=== PATIENT | female | born 1940 | race Caucasian/White ===

== ENCOUNTER → 2016-11-14 | Outpatient (CLI) | payer MEDICARE, OTHER ==
[~2016-11-14] MED LIST: ALPR-412 PO; CALC500T83 PO; CHOL100010 PO; DYZ PO; FAMO20TA11 PO; LEVO100T PO; SUMA50TA15 PO; WARF2TAB PO
[2016-11-14 18:16] LABS: BLOOD UREA NITROGEN 10 mg/dl (7-18); BUN/CREATININE RATIO 22.1 (10-20); CARBON DIOXIDE 28 mmol/L (21-32); CHLORIDE 94 mmol/L (98-107); CREATININE 0.47 mg/dl (0.60-1.20); GLUCOSE 85 mg/dl (70-99); POTASSIUM 3.5 mmol/L (3.5-5.1); SODIUM 130 mmol/L (136-145)
== END | disposition home or self-care (01) ==
LOC: C.LAB1850 16:13
PROVIDERS: ATTEND Internal Medicine
DX: I10 Essential (primary) hypertension (principal)

== ENCOUNTER → 2016-11-19 | Outpatient (CLI) | payer MEDICARE ==
[~2016-11-19] MED LIST changes: +CALCTAB7 PO; +CHOL100027 PO; +DPRSCR15 TOP; +FERR1TAB23 PO; +LSN20 PO; +MXZC25 PO; +SPIR1TAB72 PO
--- NOTE | 2016-11-19 09:36 | DIAGNOSTIC IMAGING REPORT ---
(RENAL)RETROPERITONEA COMP HISTORY: Hypertension I10 Hypertension COMPARISON: None. FINDINGS: Right kidney: 1.1 cm maximum linear dimension no evidence for hydronephrosis Normal corticomedullary differentiation and cortical thickness. Left kidney: Maximum dimension 9.9 cm. No evidence for hydronephrosis Normal corticomedullary differentiation and cortical thickness. Bladder: No bladder wall thickening. The bilateral ureteral jets were identified. IMPRESSION: Normal renal ultrasound. The above report was generated using voice recognition software. It may contain grammatical, syntax or spelling errors. Electronically signed by: Loki Tracy M.D. 11/19/2016 9:34 AM Dictated Date/Time: 11/19/2016 9:30 AM
--- NOTE | 2016-11-19 09:51 | DIAGNOSTIC IMAGING REPORT ---
DUPLEX RENAL ARTERY CLINICAL HISTORY: I10 Hypertension hypertension TECHNIQUE: Doppler COMPARISON STUDY: None FINDINGS: Velocity characteristics bilaterally are unremarkable. Impedance characteristics are unremarkable. IMPRESSION: No evidence for significant stenotic process The above report was generated using voice recognition software. It may contain grammatical, syntax or spelling errors. Electronically signed by: Loki Tracy M.D. 11/19/2016 9:50 AM Dictated Date/Time: 11/19/2016 9:48 AM
== END | disposition home or self-care (01) ==
LOC: C.ULTR 08:09
PROVIDERS: ATTEND Internal Medicine
DX: I10 Essential (primary) hypertension (principal)

== ENCOUNTER 2016-11-28 20:56 | Inpatient (IN) | payer MEDICARE, OTHER ==
[~2016-11-28] VITALS: Ht 167.6 cm; Wt 53.1 kg
[~2016-11-28 20:56] MED LIST changes: -CALCTAB7 PO; -CHOL100027 PO; -DPRSCR15 TOP; -FERR1TAB23 PO; -LSN20 PO; -MXZC25 PO; -SPIR1TAB72 PO
[2016-11-28] MEDS ORDERED: HydrALAZINE HCL 20 MG/ML VIAL IV. STA (21:49)
[2016-11-28] MEDS ORDERED: SPIR1TAB72 PO (22:40)
[2016-11-28] MEDS ORDERED: CALCTAB7 PO (22:40)
[2016-11-28] MEDS ORDERED: CHOL100027 PO (22:40)
[2016-11-28] MEDS ORDERED: DPRSCR15 TOP (22:42)
--- NOTE | 2016-11-28 22:49 | DIAGNOSTIC IMAGING REPORT ---
CHEST ONE VIEW PORTABLE HISTORY: 76 years-old Female CHEST PAIN COMPARISON: 01/27/2015 TECHNIQUE: Portable upright AP view of the chest FINDINGS: Cardiac silhouette is upper limits of normal. There is atherosclerosis of the aorta. There is no pneumothorax, pleural effusion or focal airspace consolidation identified. Nodular density of the right lung base suggest nipple shadow. No overt pulmonary edema. Lungs are again hyperinflated. Right shoulder rotator cuff calcific tendinosis is present. Upper abdominal structures are within normal limits. IMPRESSION: Hyperinflation without acute cardiopulmonary process. Nodular density of the right lung base suggest nipple shadow. The above report was generated using voice recognition software. It may contain grammatical, syntax or spelling errors. Electronically signed by: Paco Joshi M.D. 11/28/2016 10:47 PM Dictated Date/Time: 11/28/2016 10:45 PM
[2016-11-28 22:52] LABS: BASO % 1.1 %; BASO ABS # 0.05 K/uL (0-0.2); COMPLETE YES; EOS % 5.2 %; IG% 0.2 %; LYMPH % 26.3 %; LYMPH ABS # 1.22 K/uL (1.2-3.4); MEAN CELL VOLUME 96.5 fL (80-100); MEAN CORPUSCULAR HEMOGLOBIN 33.6 pg (25-34); MEAN CORPUSCULAR HGB CONC 34.8 g/dl (32-36); MEAN PLATELET VOLUME 8.7 fL (7.4-10.4); MONO % 12.7 %; NEUT % 54.5 %; PLATELET COUNT 247 K/uL (130-400); RED BLOOD COUNT 4.56 M/uL (4.2-5.4); WHITE BLOOD COUNT 4.64 K/uL (4.8-10.8)
[2016-11-28] MEDS ORDERED: FERR1TAB23 PO (22:55)
[2016-11-28 23:10] LABS: CALCIUM 9.8 mg/dl (8.5-10.1); CREATININE 0.54 mg/dl (0.60-1.20); POTASSIUM 3.5 mmol/L (3.5-5.1)
[2016-11-28] MEDS ORDERED: ACETAMINOPHEN 500 MG TAB PO STA (23:17)
[2016-11-28] MEDS ORDERED: LORAZEPAM 2 MG/ML 1 ML VIAL IV STA (23:31)
[2016-11-29] VITALS (11 sets, daily range): BP systolic 135–193; BP diastolic 81–116; PULSE 58–92; TEMP 36.5–36.7; O2SAT 95–96; Ht 167.6 cm; Wt 53.1 kg
--- NOTE | 2016-11-29 00:52 | EMERGENCY ROOM VISIT NOTE ---
History Report prepared by Sowmya: aLlo Mckay Under the Supervision of: Dr. Jefferson Jim D.O. First contact with patient: 21:42 Chief Complaint: HYPERTENSION Stated Complaint: SEVERE NECK HEAD PAIN,LIGHTHEADED,ELEVATED BP History of Present Illness The patient is a 76 year old female who presents to the Emergency Room with complaints of persistent hypertension beginning two days ago. She was diagnosed with hypertension six months ago. She is on Losartan for her blood pressure. The patient states that she was started on an additional medication two days ago for her break through hypertension. She states that her blood pressure has been elevated recently despite the additional medication. She states that her blood pressure was found to be 200/130 a few hours ago. The patient also complains of headache, neck pain, lightheadedness, and "fogginess". She denies any fevers, or LOC. She notes she has been under a little increased stress recently due to having company at her house. Source of History: patient Onset: Two days ago Symptom Intensity: 200/130 Quality: other (hypertension) Timing: other (persistent) Associated Symptoms: + headache, + neck pain, No LOC, No fevers Note: The patient also complains of "fogginess" and lightheadedness. Review of Systems See HPI for pertinent positives and negatives. A total of ten systems were reviewed and were otherwise negative. Past Medical & Surgical Medical Problems: (1) Cataract Nos (2) Cerebral Cysts (3) Cervical Spondylosis (4) Diverticulosis Colon (W/O Ment Of Hemorrhage) (5) DJD (degenerative joint disease) of hip (6) Irritable Bowel Syndrome (7) Sciatica Surgical Problems: (1) History of tonsillectomy and adenoidectomy (2) Tubal ligation status Family History No pertinent family history stated. Social History Smoking Status: Never Smoker Alcohol Use: none Drug Use: none Marital Status: Housing Status: unknown Occupation Status: retired Current/Historical Medications Scheduled Betamethasone Dip (Betamethasone Dipropionat), 1 APPLN TOP BID Calcium Carbonate-Vitamin D W/ (Caltrate 600 Plus), 1 TAB PO DAILY Cholecalciferol (Vitamin D 1000 Unit), 2,000 INTER.UNIT PO DAILY Ferrous Sulfate (Iron), 1 MG PO DAILY Hctz/Spironolactone (Spironolactone/Hydrochlor 25-25 mg), 1 TAB PO BID Levothyroxine Sodium (Synthroid), 100 MCG PO QAM Sumatriptan Succinate (Imitrex), 50 MG PO PRN Scheduled PRN Alprazolam (Alprazolam), 0.5-1 TAB PO HS PRN for PRN Famotidine (Pepcid), 20 MG PO QAM PRN for PRN Allergies Coded Allergies: Amoxicillin (Verified Allergy, Unknown, HIVES, 02/22/15) Sulfamethoxazole w/Trimethoprim (Verified Allergy, Unknown, HIVES, ) Codeine (Unverified Adverse Reaction, Unknown, NAUSEA AND VOMITING, ) Gluten (Unverified Adverse Reaction, Unknown, INTOLERANCE TO WHEAT-GI ISSUES/IBS, 02/22/15) Physical Exam Vital Signs Date Time Temp Pulse Resp B/P (MAP) Pulse Ox O2 Delivery O2 Flow Rate FiO2 11/29/16 00:01 150/80 11/28/16 23:56 91 25 96 11/28/16 23:46 157/88 11/28/16 23:31 184/92 11/28/16 23:26 111 23 186/105 98 11/28/16 23:13 99 20 168/100 98 Room Air 11/28/16 23:10 168/100 11/28/16 23:10 101 20 168/100 98 Room Air 11/28/16 22:31 176/115 11/28/16 22:26 73 28 98 11/28/16 22:11 75 11/28/16 22:10 75 16 201/127 98 Room Air 11/28/16 22:07 201/127 11/28/16 22:04 98 Room Air 11/28/16 21:14 36.6 76 18 204/117 93 Room Air Physical Exam GENERAL: Awake, alert, well-appearing, in no distress HENT: Normocephalic, atraumatic. Oropharynx unremarkable. EYES: Normal conjunctiva. Sclera non-icteric. NECK: Supple. No nuchal rigidity. FROM. No JVD. RESPIRATORY: Clear to auscultation. CARDIAC: Regular rate, normal rhythm. Extremities warm and well perfused. Pulses equal. ABDOMEN: Soft, non-distended. No tenderness to palpation. No rebound or guarding. No masses. RECTAL: Deferred. MUSCULOSKELETAL: Chest examination reveals no tenderness. The back is symmetrical on inspection without obvious abnormality. There is no CVA tenderness to palpation. No joint edema. LOWER EXTREMITIES: Calves are equal size bilaterally and non-tender. No edema. No discoloration. NEURO: Normal sensorium. No sensory or motor deficits noted. SKIN: No rash or jaundice noted. Medical Decision & Procedures ER Provider Diagnostic Interpretation: X-ray: Per my interpretation, radiologist review. CHEST ONE VIEW PORTABLE FINDINGS: Cardiac silhouette is upper limits of normal. There is atherosclerosis of the aorta. There is no pneumothorax, pleural effusion or focal airspace consolidation identified. Nodular density of the right lung base suggest nipple shadow. No overt pulmonary edema. Lungs are again hyperinflated. Right shoulder rotator cuff calcific tendinosis is present. Upper abdominal structures are within normal limits. IMPRESSION: Hyperinflation without acute cardiopulmonary process. Nodular density of the right lung base suggest nipple shadow. The above report was generated using voice recognition software. It may contain grammatical, syntax or spelling errors. Electronically signed by: Paco Joshi M.D. CT results per [facility]rad and my review. CT HEAD: MRI 08/18/2008. No acute intracranial hemorrhage. No evidence of acute infarct, extra-axial fluid collection, or hydrocephalus. White matter hyperdensities, which are nonspecific but are most likely related to chronic small vessel ischemic changes. Global cerebral volume loss. Visualized paranasal sinuses and mastoid air cells are clear. Laboratory Results 11/28/16 22:15 Red Blood Count 4.56, Mean Corpuscular Volume 96.5, Mean Corpuscular Hemoglobin 33.6, Mean Corpuscular Hemoglobin Concent 34.8, Mean Platelet Volume 8.7, Neutrophils (%) (Auto) 54.5, Lymphocytes (%) (Auto) 26.3, Monocytes (%) (Auto) 12.7, Eosinophils (%) (Auto) 5.2, Basophils (%) (Auto) 1.1, Neutrophils # (Auto ) 2.53, Lymphocytes # (Auto) 1.22, Monocytes # (Auto) 0.59, Eosinophils # (Auto ) 0.24, Basophils # (Auto) 0.05 11/28/16 22:15 Test 11/28/16 22:15 White Blood Count 4.64 K/uL (4.8-10.8) Red Blood Count 4.56 M/uL (4.2-5.4) Hemoglobin 15.3 g/dL (12.0-16.0) Hematocrit 44.0 % (37-47) Mean Corpuscular Volume 96.5 fL (80-100) Mean Corpuscular Hemoglobin 33.6 pg (25-34) Mean Corpuscular Hemoglobin Concent 34.8 g/dl (32-36) Platelet Count 247 K/uL (130-400) Mean Platelet Volume 8.7 fL (7.4-10.4) Neutrophils (%) (Auto) 54.5 % Lymphocytes (%) (Auto) 26.3 % Monocytes (%) (Auto) 12.7 % Eosinophils (%) (Auto) 5.2 % Basophils (%) (Auto) 1.1 % Neutrophils # (Auto) 2.53 K/uL (1.4-6.5) Lymphocytes # (Auto) 1.22 K/uL (1.2-3.4) Monocytes # (Auto) 0.59 K/uL (0.11-0.59) Eosinophils # (Auto) 0.24 K/uL (0-0.5) Basophils # (Auto) 0.05 K/uL (0-0.2) RDW Standard Deviation 46.2 fL (36.4-46.3) RDW Coefficient of Variation 13.2 % (11.5-14.5) Immature Granulocyte % (Auto) 0.2 % Immature Granulocyte # (Auto) 0.01 K/uL (0.00-0.02) Anion Gap 9.0 mmol/L (3-11) Est Creatinine Clear Calc Drug Dose 74.4 ml/min Estimated GFR () 104.8 Estimated GFR (Non- 90.4 BUN/Creatinine Ratio 20.0 (10-20) Calcium Level 9.8 mg/dl (8.5-10.1) Total Bilirubin 0.6 mg/dl (0.2-1) Direct Bilirubin 0.2 mg/dl (0-0.2) Aspartate Amino Transf (AST/SGOT) 25 U/L (15-37) Alanine Aminotransferase (ALT/SGPT) 23 U/L (12-78) Alkaline Phosphatase 84 U/L (45-117) Total Protein 8.0 gm/dl (6.4-8.2) Albumin 4.5 gm/dl (3.4-5.0) Laboratory results reviewed by me Medications Administered Medications (Trade) Dose Ordered Sig/Jackie Route Start Time Stop Time Status Last Admin Dose Admin Hydralazine HCl (HydrALAZINE INJ) 10 mg NOW STAT IV. 11/28/16 21:49 11/28/16 21:51 DC 11/28/16 22:29 10 MG Acetaminophen (Tylenol Tab) 1,000 mg NOW STAT PO 11/28/16 23:17 11/28/16 23:18 DC 11/28/16 23:37 1,000 MG Lorazepam (Ativan Inj) 1 mg NOW STAT IV 11/28/16 23:31 11/28/16 23:32 DC 11/28/16 23:37 1 MG ECG Indication: other (lightheadedness) Rate (beats per minute): 69 Rhythm: sinus rhythm Findings: 1st degree AV block, no acute ischemic change, other (LVH) Change: Repeat ECG reveals a sinus tachycardia with a rate of 107 bpm. Non-specific ST and T wave change. Normal axis. Normal intervals. ED Course 2142: The patient was evaluated in room B8. A complete history and physical exam was performed. 9: Ordered Hydralazine Inj 10 mg IV. 7: Ordered Tylenol Tab 1000 mg PO. 2331: Ordered Ativan Inj 1 mg IV. 0045: Upon reexamination, the patient was resting comfortably. I discussed the test results and treatment plan with her. She would like to stay in the hospital. The patient will be evaluated for further management. Medical Decision Differential diagnosis: Etiologies such as benign hypertension, hypertensive emergency, cardiovascular pathology, pheochromocytoma, electrolyte abnormality, renal disease, endorgan damage, as well as others were entertained. Patient is in no distress her pressure did decrease after hydralazine and Ativan. Patient did have some symptoms of hypertensive urgency with dizziness. There is no obvious CVA on CT. On repeat examination 1 3 AM the patient is nonfocal neurologically. The patient is afraid to go home. The case is discussed with the hospitalist for admission Consults Time Called: 44 Consulting Physician: Dr. Peña -[facility] [place] Returned Call: [phone] Discussed the patient's case. The patient will be evaluated for further treatment and disposition. Impression Primary Impression: HTN (hypertension) Additional Impression: Dizziness Scribe Attestation The scribe's documentation has been prepared under my direction and personally reviewed by me in its entirety. I confirm that the note above accurately reflects all work, treatment, procedures, and medical decision making performed by me. Departure Information Dispostion Being Evaluated By Hospitalist Referrals David Quinones M.D. (PCP) Patient Instructions My [facility] Problem Qualifiers
[2016-11-29] MEDS ORDERED: ACETAMINOPHEN 325 MG TAB PO PRN (02:00)
[2016-11-29] MEDS ORDERED: LORAZEPAM 2 MG/ML 1 ML VIAL IV STA (02:12)
[2016-11-29] MEDS ORDERED: NSS + 20MEQ KCL 1000ML 1,000 ML IV SCH (03:39)
[2016-11-29] MEDS: ALPRAZOLAM 0.25 MG TAB PO PRN ×2 (04:05→20:02)
[2016-11-29] MEDS: SUMATRIPTAN SUCCINATE 50 MG TAB PO PRN (04:12)
--- NOTE | 2016-11-29 05:39 | History and Physical ---
History & Physical Date & Time of Service: Nov 29, 2016 at 05:29 Chief Complaint: Dizziness, Hypertensive Urgency Primary Care Physician: David Quinones M.D. History of Present Illness Source: patient, spouse The patient is a 76-year-old female who presents emergency department with symptoms of generalized fatigue and worsening of her blood pressure over the past 2 days. She was initially diagnosed with hypertension 6 months ago and was started on losartan and then had the addition of Aldactazide 2 days ago for breakthrough hypertension. When she checked her blood pressure. Hours prior to arrival, it increased to 200/1:30 in spite of the 2 medications. With the development of a headache, neck pain, lightheadedness and brain fogginess, she decided to come to emergency department for assessment. She has not had any change in dietary intake or general activity level, but does report some mild increased stress recently due to having company at her house. She does not have much salt in her diet, and is not take any [id number] herbal supplements. Past Medical/Surgical History Medical Problems: (1) Cataract Nos Status: Chronic (2) Cerebral Cysts Status: Chronic (3) Cervical Spondylosis Status: Chronic (4) Diverticulosis Colon (W/O Ment Of Hemorrhage) Status: Chronic (5) DJD (degenerative joint disease) of hip Status: Chronic (6) Irritable Bowel Syndrome Status: Chronic (7) Sciatica Status: Chronic Surgical Problems: (1) History of tonsillectomy and adenoidectomy Status: Resolved (2) Tubal ligation status Status: Resolved Family History Noncontributory Social History Smoking Status: Never Smoker Smokeless Tobacco Use: No Alcohol Use: none Drug Use: none Marital Status: Housing status: lives with significant other Occupational Status: retired Immunizations History of Influenza Vaccine: Yes History of Tetanus Vaccine?: Yes History of Pneumococcal: Yes History of Hepatitis B Vaccine: Yes Multi-Drug Resistant Organisms History of MDRO: No Allergies Coded Allergies: Amoxicillin (Verified Allergy, Unknown, HIVES, 02/22/15) Sulfamethoxazole w/Trimethoprim (Verified Allergy, Unknown, HIVES, ) Codeine (Unverified Adverse Reaction, Unknown, NAUSEA AND VOMITING, ) Gluten (Unverified Adverse Reaction, Unknown, INTOLERANCE TO WHEAT-GI ISSUES/IBS, 10/21/15) Home Medications Scheduled Betamethasone Dip (Betamethasone Dipropionat), 1 APPLN TOP BID Calcium Carbonate-Vitamin D W/ (Caltrate 600 Plus), 1 TAB PO DAILY Cholecalciferol (Vitamin D 1000 Unit), 2,000 INTER.UNIT PO DAILY Ferrous Sulfate (Iron), 1 MG PO DAILY Levothyroxine Sodium (Synthroid), 100 MCG PO QAM Sumatriptan Succinate (Imitrex), 50 MG PO PRN Triamterene/Hctz (Triamterene/Hctz 37.5-25MG Tab), 1 TAB PO DAILY Scheduled PRN Alprazolam (Alprazolam), 0.5-1 TAB PO HS PRN for PRN Famotidine (Pepcid), 20 MG PO QAM PRN for PRN Review of Systems The patient denies chest pain, palpitations, shortness of breath, cough, lower extremity swelling, vision change, hearing change, sore throat, fevers, chills, sweats, weight change, nausea, vomiting, abdominal pain, pelvic pain, blood in urine or stool, dysuria, urinary frequency or urgency, memory loss, rash, abnormal bruising or bleeding, imbalance, focal or generalized weakness, numbness or tingling in arms or legs, arthralgias or myalgias, back or neck pain , night sweats, or allergy symptoms. The review of systems is otherwise negative other than for that already noted above, and at least 10 systems have been reviewed. Physical Exam Vital Signs Date Time Temp Pulse Resp B/P (MAP) Pulse Ox O2 Delivery O2 Flow Rate FiO2 11/29/16 04:00 36.7 87 20 150/94 (112) 95 Room Air 11/29/16 04:00 Room Air 11/29/16 02:10 86 11/29/16 02:01 136/88 11/29/16 01:55 91 17 96 11/29/16 01:31 140/82 11/29/16 01:25 88 15 96 11/29/16 01:20 135/82 11/29/16 01:06 100 20 94 11/29/16 01:01 136/73 11/29/16 00:46 158/91 11/29/16 00:36 83 19 95 11/29/16 00:31 143/83 11/29/16 00:16 132/80 11/29/16 00:06 93 16 96 11/29/16 00:01 150/80 11/28/16 23:56 91 25 96 11/28/16 23:46 157/88 11/28/16 23:31 184/92 11/28/16 23:26 111 23 186/105 98 11/28/16 23:13 99 20 168/100 98 Room Air 11/28/16 23:10 168/100 11/28/16 23:10 101 20 168/100 98 Room Air 11/28/16 22:31 176/115 11/28/16 22:26 73 28 98 11/28/16 22:11 75 11/28/16 22:10 75 16 201/127 98 Room Air 11/28/16 22:07 201/127 11/28/16 22:04 98 Room Air 11/28/16 21:14 36.6 76 18 204/117 93 Room Air The patient is awake, well-developed and adequately nourished, alert and oriented 3, normocephalic and atraumatic, looks fatigued and dehydrated, lying in bed and in no acute distress. HEENT--PERRL, EOMI, mucous membranes and oropharynx dry. Neck--supple, no JVD or bruits, thyroid normal, trachea midline, no adenopathy. Heart--normal S1 and S2, no extra beats, no murmurs, rubs or gallops. Lungs--clear bilaterally with good air movement, no respiratory distress, no accessory muscle use. Abdomen--normal bowel sounds and soft, nontender and nondistended, no hernias or masses, no organomegaly. Extremities--no cyanosis, clubbing or edema. There are good distal pulses b/l. Dermatologic-- normal color, warm and dry, no abnormal lymph nodes, no rash. Neurologic--cranial nerves II through XII grossly intact, motor and sensory examination normal. Rheumatologic--normal range of motion, nontender, muscles and joints. Psychiatric--normal affect. Diagnostics Laboratory Results Results Past 24 Hours Test 11/28/16 22:15 Range/Units White Blood Count 4.64 4.8-10.8 K/uL Red Blood Count 4.56 4.2-5.4 M/uL Hemoglobin 15.3 12.0-16.0 g/dL Hematocrit 44.0 37-47 % Mean Corpuscular Volume 96.5 80-100 fL Mean Corpuscular Hemoglobin 33.6 25-34 pg Mean Corpuscular Hemoglobin Concent 34.8 32-36 g/dl Platelet Count 247 130-400 K/uL Mean Platelet Volume 8.7 7.4-10.4 fL Neutrophils (%) (Auto) 54.5 % Lymphocytes (%) (Auto) 26.3 % Monocytes (%) (Auto) 12.7 % Eosinophils (%) (Auto) 5.2 % Basophils (%) (Auto) 1.1 % Neutrophils # (Auto) 2.53 1.4-6.5 K/uL Lymphocytes # (Auto) 1.22 1.2-3.4 K/uL Monocytes # (Auto) 0.59 0.11-0.59 K/uL Eosinophils # (Auto) 0.24 0-0.5 K/uL Basophils # (Auto) 0.05 0-0.2 K/uL RDW Standard Deviation 46.2 36.4-46.3 fL RDW Coefficient of Variation 13.2 11.5-14.5 % Immature Granulocyte % (Auto) 0.2 % Immature Granulocyte # (Auto) 0.01 0.00-0.02 K/uL Sodium Level 134 136-145 mmol/L Potassium Level 3.5 3.5-5.1 mmol/L Chloride Level 96 98-107 mmol/L Carbon Dioxide Level 29 21-32 mmol/L Anion Gap 9.0 3-11 mmol/L Blood Urea Nitrogen 11 7-18 mg/dl Creatinine 0.54 0.60-1.20 mg/dl Est Creatinine Clear Calc Drug Dose 74.4 ml/min Estimated GFR () 104.8 Estimated GFR (Non- 90.4 BUN/Creatinine Ratio 20.0 10-20 Random Glucose 83 70-99 mg/dl Calcium Level 9.8 8.5-10.1 mg/dl Total Bilirubin 0.6 0.2-1 mg/dl Direct Bilirubin 0.2 0-0.2 mg/dl Aspartate Amino Transf (AST/SGOT) 25 15-37 U/L Alanine Aminotransferase (ALT/SGPT) 23 12-78 U/L Alkaline Phosphatase 84 45-117 U/L Total Protein 8.0 6.4-8.2 gm/dl Albumin 4.5 3.4-5.0 gm/dl Diagnostic Radiology Patient Name: IRENE MAYFIELD I Unit Number: [id number] Dictated: 11/28/162244 Transcribed: 11/28/162244 JRB Printed Date/Time: [~ rep prt dt]/[~ rep prt tm] [~ rep ct labl] - [~ rep ct ivnm] [facility] [place] [place] [address] Dictated: 11/28/162244 Transcribed: 11/28/162244 JRB Printed Date/Time: [~ rep prt dt]/[~ rep prt tm] [~ rep ct labl] - [~ rep ct ivnm] [~ rep ct add3]] CHEST ONE VIEW PORTABLE HISTORY: 76 years-old Female CHEST PAIN COMPARISON: 01/27/2015 TECHNIQUE: Portable upright AP view of the chest FINDINGS: Cardiac silhouette is upper limits of normal. There is atherosclerosis of the aorta. There is no pneumothorax, pleural effusion or focal airspace consolidation identified. Nodular density of the right lung base suggest nipple shadow. No overt pulmonary edema. Lungs are again hyperinflated. Right shoulder rotator cuff calcific tendinosis is present. Upper abdominal structures are within normal limits. IMPRESSION: Hyperinflation without acute cardiopulmonary process. Nodular density of the right lung base suggest nipple shadow. The above report was generated using voice recognition software. It may contain grammatical, syntax or spelling errors. Electronically signed by: Paco Joshi M.D. 11/28/2016 10:47 PM Dictated Date/Time: 11/28/2016 10:45 PM The status of this report is Signed. Draft = Not yet reviewed or approved by Radiologist. Signed = Reviewed and approved by Radiologist. <AttendingPhy></AttendingPhy> <FamilyPhy>David Quinones M.D.</FamilyPhy> < PrimaryPhy>David Quinones M.D.</PrimaryPhy> <UnitNumber>[id number]</UnitNumber > <VisitNumber>[id number]</VisitNumber> <PatientName>IRENE MAYFIELD I</ PatientName> <DateOfBirth>1940</DateOfBirth> <Location>[facility]</Location> < ServiceDate>11/28/16</ServiceDate> <MNE>ESINDI</MNE> <OrderingPhy>Jefferson Jim DO</OrderingPhy> <OrderingPhyMNE>f rep ord dr de jesus</OrderingPhyMNE> < DictatingPhyMNE>f rep dict dr de jesus</DictatingPhyMNE> <CCListMNE>f rep ct hammade</ CCListMNE> <AdmittingPhyMNE>f pt admit dr de jesus</AdmittingPhyMNE> <AttendingPhyMNE >f pt attend dr de jesus</AttendingPhyMNE> <ConsultingPhyMNE>f pt consult dr de jesus</ConsultingPhyMNE> <FamilyPhyMNE>f pt fam dr de jesus</FamilyPhyMNE> <OtherPhyMNE>f pt other dr de jesus</OtherPhyMNE> < PrimaryPhyMNE>f pt prim care dr de jesus</PrimaryPhyMNE> <ReferringPhyMNE>f pt referring dr de jesus</ReferringPhyMNE> EKG EKG shows sinus tachycardia at 107 bpm, LVH with repolarization, no acute ST-T changes Impression Assessment and Plan Hypertensive urgency/fatigue/lightheadedness/neck pain/brain fogginess--The patient will be admitted to telemetry for serial cardiac enzymes, cardiac rhythm monitoring and a 2-D echocardiogram with Dopplers. We will hold Aldactazide 25 mg by mouth twice a day as she appears dehydrated. She did receive hydralazine 10 mg IV in the emergency department with improvement in blood pressure from 204/117-140/84. We'll place on normal saline with KCl 20 mEq ML's per hour. We'll check a urinalysis, renal ultrasound. CT of the head that contrast shows mild chronic small vessel disease. We'll order an MRI the brain to assess for possible CVA and secondary Chencho affect. She is primarily tachycardic at this point, which may be secondary to volume depletion, but for now we'll place on metoprolol tartrate 25 mg by mouth twice a day, until she is rehydrated and the other tests are interpreted. Hypothyroidism--continue levothyroxine sodium at 100 g by mouth every morning. Migraine headache--continue sumatriptan 50 mg by mouth daily when necessary. GERD--place on famotidine 20 mg by mouth twice a day. Anxiety--continue alprazolam 0.5 mg by mouth at bedtime when necessary, and place on lorazepam 1 mg IV 30 minutes prior to MRI. Advanced Directives Existing Advance Directive: No Existing Living Will: Yes Existing Power of Tool Carrier: Yes Resuscitation Status FULL RESUSCITATION VTE Prophylaxis VTE Risk Assessment Done? Y/N: Yes Risk Level: Moderate Given or contraindicated: SCD's Social Service Consult None Apply
[2016-11-29] MEDS: LEVOTHYROXINE 100 MCG TAB PO SCH (06:06)
--- NOTE | 2016-11-29 07:03 | DIAGNOSTIC IMAGING REPORT ---
HEAD WITHOUT CONTRAST (CT) CLINICAL HISTORY: 76 years-old Female presenting with dizzy. TECHNIQUE: Multidetector CT imaging of the head was performed without the use of intravenous contrast. IV contrast: None. A dose lowering technique was used consistent with the principles of ALARA (as low as reasonably achievable). COMPARISON: 12/18/2005. CT DOSE (mGy.cm): The estimated cumulative dose is 1277.12 mGycm. FINDINGS: Chemotherapist topogram: Unremarkable. Ventricles and sulci normal in size. Periventricular white matter hypoattenuation, nonspecific but likely indicative of chronic small vessel ischemic change. This is more prominent on the current exam. Possible old lacunar infarct in the right frontal subcortical white matter. Hypoattenuation in the left basal ganglia may also relate to chronic small vessel ischemia, although focus of acute ischemia cannot be excluded. No mass effect or midline shift. No hemorrhage. No extra-axial fluid collection. Paranasal sinuses and mastoid air cells clear. Calvarium intact. IMPRESSION: 1. Interval increase in chronic small vessel ischemic change. Additionally, left basal ganglia hypoattenuation may also relate to chronic small vessel ischemic change, however, a focus of acute ischemia cannot be excluded. Further evaluation with noncontrast MR brain could be considered as clinically warranted. Electronically signed by: Marco Silver M.D. 11/29/2016 7:02 AM Dictated Date/Time: 11/29/2016 6:57 AM
--- NOTE | 2016-11-29 07:08 | DIAGNOSTIC IMAGING REPORT ---
CAROTID ARTERY ULTRASOUND CLINICAL HISTORY: Hypertensive urgency, dizziness, fatigue. COMPARISON STUDY: Carotid ultrasound January 01, 2006. TECHNIQUE: Real-time, grayscale, and color Doppler sonography of the carotid and vertebral arteries was performed. Images were viewed in the transverse and longitudinal planes. FINDINGS: There is mild atherosclerotic plaque. Velocity measurements are listed below. COMMON CAROTID PEAK SYSTOLIC VELOCITY (CM/S): RIGHT 77 LEFT 53 ICA PEAK SYSTOLIC VELOCITY (CM/S): RIGHT 58 LEFT 73 The systolic ratios between the internal to common carotid arteries were normal. Antegrade flow is seen in the vertebral arteries. The external carotid arteries are patent. Blood pressure in the right arm measured 150/96. Blood pressure in the left arm measured 154/92. IMPRESSION: No evidence of a hemodynamically significant stenosis. Electronically signed by: Steve Adam M.D. 11/29/2016 7:06 AM Dictated Date/Time: 11/29/2016 7:05 AM
[2016-11-29] MEDS: CALCIUM 600MG + VIT D 400 IU TAB PO SCH (08:43)
[2016-11-29] MEDS: CHOLECALCIFEROL 1000 INTER.UNIT TAB PO SCH (08:43)
[2016-11-29] MEDS: FAMOTIDINE 20 MG TAB PO SCH (08:46)
[2016-11-29] MEDS ORDERED: METOPROLOL TARTRATE 25 MG TAB PO SCH (09:00)
--- NOTE | 2016-11-29 11:58 | NEPHROLOGY CONSULTATION ---
DATE OF CONSULTATION: 11/29/2016 RENAL HYPERTENSION CONSULT PROBLEM: Hypertension. SUBJECTIVE: Mrs. Bullock is a 76-year-old woman that I have known for many years. I was her primary care physician prior to her moving to [place] about a year or more ago. She was admitted overnight with significant elevation of her blood pressure and symptoms of generalized fatigue, headache, neck pain, lightheadedness and a sensation of "fogginess." Her medical history is one of what appears to be benign essential hypertension dating back many years. Her hypertension had been evaluated in the past because it was extremely labile. In the past, there was no evidence of renovascular disease and she had no evidence of a pheochromocytoma. Electrolytes and renal function have always been normal and her urinalysis has been normal. For many years, her blood pressure was well controlled with triamterene/hydrochlorothiazide and restricted salt diet. As a matter of fact, she was able to discontinue that drug in about 2010 for several months and her blood pressure remained quite normal. However, with increasing stress in her life, her blood pressure cheri again, but seemed to be well controlled simply with triamterene/hydrochlorothiazide. She remained on that for several years. She had been on spironolactone/hydrochlorothiazide in [place]. However, her primary care cook box filler there noted that her blood pressure was starting to climb and added losartan 25 mg to her regimen. Still that was not effectively controlling her blood pressure. She returned to this area for a visit and scheduled an appointment with me for an opinion with regard to her hypertensive management. That was about 2 weeks ago. Her evaluation was repeat renal ultrasound and renal artery duplex, both of which were completely normal. Her electrolytes were normal, although on a combination of triamterene and losartan, her serum potassium was still 3.5, which is in the low normal range. Her BUN and creatinine were quite normal with her creatinine being in the range of 0.5-0.6 mg/dL. Based on the appearance of low-renin hypertension, it was decided to discontinue her triamterene/hydrochlorothiazide and losartan in favor of spironolactone/hydrochlorothiazide 25/25. Shortly after she started to take the drug, she seemed to feel worse with symptoms of brain fogginess, lightheadedness and headache. Her blood pressure still was not well controlled. She contacted our office and was instructed to reduce the dose to one 25/25 mg tablet per day. She did so, but continued to feel poorly. Therefore, we discontinued her hydrochlorothiazide and left her on spironolactone alone. Nonetheless, her measured blood pressures at home started to rise again as she felt increasingly anxious, continued to have symptoms of headache and fogginess in her head as well as some neck pain. She did not develop any focal neurologic symptoms or problems. Because of that symptomatology, she called the office late yesterday. She spoke with Dr. Adam, who suggested that she be evaluated in the Emergency Room. In the Emergency Room, her blood pressure was extremely high and she was admitted for continued care. She did have a CT scan of her head, which showed changes of probable microvascular disease. Her other associated medical illnesses include a history of irritable bowel syndrome and diverticulosis. She has significant osteoarthritis and has had bilateral hip replacements. That was complicated by a fall after her right hip replacement and an apparent periprosthetic fracture. This well healed. She has a history of low back pain with sciatica. She has a history of hypothyroidism and does take thyroid supplements. She also has a history of Raynaud's disease. She is not on any specific medication for that. The remainder of her past medical history, family history, social history and review of systems appears on her medical admission note by Dr. Peña. There are no additions on my part for that other than the fact that she was seen by dermatology and had several lesions on her anterior chest frozen. That was done recently by Dr. Sara Dyer. Other medications include her thyroid supplement, the use of Imitrex for migraine, vitamin D, alprazolam which she uses on a p.r.n. basis and famotidine, which she uses on a p.r.n. basis for dyspepsia. OBJECTIVE: GENERAL: On physical exam when seen by me, she appeared to be at her baseline. VITAL SIGNS: However, her blood pressure was still elevated at 154/89 with a pulse of 71 and regular. Respiratory rate was 20. Her pulse ox 95% on room air. She is afebrile. SKIN: Shows some apparently cauterized lesions on her anterior chest. Her skin turgor is normal. She has no rash or infiltrative skin disease. There is no cafe au lait spots or neurofibromas. LYMPHATICS: Show no palpable lymphadenopathy. HEAD: Normal. EYES: Grossly normal. The ocular fundi were not examined today, but 1 week ago in my office, they appeared perfectly normal. EARS, NOSE, MOUTH AND THROAT: Unremarkable. Her oral mucous membranes are moist. NECK: Supple. She has no jugular venous distention, carotid bruit or thyromegaly. CHEST: Clear to auscultation. CARDIAC: Shows a regular rhythm. S1 and S2 are normal. I hear no murmur or gallop. ABDOMEN: Firm, but nontender. There is no organomegaly or mass. Bowel sounds are normal. I hear no abdominal bruits. EXTREMITIES: Show no cyanosis, clubbing or peripheral edema. Peripheral pulses are intact. Capillary refill in fingers and toes seem normal. NEUROLOGIC: Shows no lateralizing changes. ASSESSMENT: Mrs. Bullock is a 76-year-old woman with a longstanding history of hypertension, which has been mild to moderate in degree. Her recent evaluation was suggestive of the possibility that she had a low-renin hypertension and for that reason, she was switched to spironolactone/hydrochlorothiazide rather than triamterene/hydrochlorothiazide and losartan. Unfortunately, her blood pressure cheri dramatically. We do know that she had a recent normal renal artery duplex and that her potassium was somewhat low despite being on losartan and triamterene. RECOMMENDATIONS: For now, since she appears to be euvolemic, I would discontinue her IV saline. I would return her to triamterene/hydrochlorothiazide. She could be discharged on that medication as well as her other usual medications. I can follow her up in the office in about 3 days. She knows to follow a restricted sodium diet. The choice of a second drug is complicated. Given the fact that she is bothered by Raynaud's, metoprolol may not be the best drug for her. Losartan is a possibility as well as an SHAUNA inhibitor. However, using that in conjunction with triamterene could be complicated by significant hyperkalemia. Obviously that has not happened to date, but it is a possibility particularly in association within her current acute illness. Because she has a history of migraine, verapamil is a possibility, but her history of irritable bowel syndrome and constipation may contraindicate the use of that drug. Diltiazem is another potential alternative. Nonetheless, these questions can be answered as an outpatient. I do think that many of the symptoms that she is experiencing are probably the direct effect of spironolactone as opposed to an effect of an elevated blood pressure. Thank you for allowing me to participate in her care. I will follow her as an inpatient, but I will be away for the next 3 days. Hopefully, she can be discharged well before then and again, I offer an appointment to see me on Friday in the office. NHAN
[2016-11-29] MEDS ORDERED: TRIAMTERENE/HCTZ 37.5/25MG CAP PO ONE (12:40)
[2016-11-29] MEDS ORDERED: MXZC25 PO (14:28)
--- NOTE | 2016-11-29 14:39 | Discharge Instructions ---
Discharge Instructions Date of Service Nov 29, 2016. Admission Reason for Admission: Dizziness, Hypertensive Urgency Discharge Discharge Diagnosis / Problem: hypertensive urgency, dizziness Discharge Goals Goal(s): Decrease discomfort, Improve function, Increase independence, Improve disease control, Learn about illness, Diagnostic testing, Therapeutic intervention, Prevent Disease Progression Activity Recommendations Activity Limitations: resume your previous activity Exercise/Sports Limitations: none . Instructions / Follow-Up Instructions / Follow-Up Patient to be discharged home Please stop taking hctz/spirolactone Prescription sent for hctz/triamterene and lisinopril, both to take once a day Will need to follow up with Dr Quinones on friday12/03/16 Can take imitrex or tylenol for headache Current Hospital Diet Patient's current hospital diet: AHA Diet (Heart Healthy) Discharge Diet Recommended Diet: Low Sodium Diet (2gm Na) Pending Studies Studies pending at discharge: no Medical Emergencies . Who to Call and When: Medical Emergencies: If at any time you feel your situation is an emergency, please call 911 immediately. . Non-Emergent Contact Non-Emergency issues call your: Primary Care Provider Call Non-Emergent contact if: your pain is worsening . . "Provider Documentation" section prepared by Eitan Dye. . VTE Core Measure Inpt VTE Proph given/why not?: SCD's
--- NOTE | 2016-11-29 16:10 | Discharge Summary ---
Discharge Summary Date of Service Nov 29, 2016. Discharge Summary Admission Date: Nov 29, 2016 at 01:59 Discharge Date: Nov 29, 2016 Discharge Disposition: Home Principal Diagnosis: Hypertensive urgency Immunizations: Have You Had Influenza Vaccine: Yes History of Tetanus Vaccine?: Yes History of Pneumococcal: Yes History of Hepatitis B Vaccine: Yes Consultations: Nephrology Medication Reconciliation New Medications: Triamterene/Hctz (Triamterene/Hctz 37.5-25MG Tab) 1 Tab Tab 1 TAB PO DAILY for 30 Days, #30 TAB 5 Refills Continued Medications: Alprazolam (Alprazolam) 0.25 Mg Tab 0.5-1 TAB PO HS PRN for PRN for 30 Days, #60 TAB Betamethasone Dip (Betamethasone Dipropionat) 45 Appln/15 Gm Cr 1 APPLN TOP BID, #45 Calcium Carbonate-Vitamin D W/ (Caltrate 600 Plus) 1 Tab Tab 1 TAB PO DAILY, TAB Cholecalciferol (Vitamin D 1000 Unit) 1,000 Unit Cap 2000 INTER.UNIT PO DAILY, CAP Famotidine (Pepcid) 20 Mg Tab 20 MG PO QAM PRN for PRN, TAB Ferrous Sulfate (Iron) Unknown Strength Tab 1 MG PO DAILY Levothyroxine Sodium (Synthroid) 100 Mcg Tab 100 MCG PO QAM, TAB Sumatriptan Succinate (Imitrex) 50 Mg Tab 50 MG PO PRN, TAB PRN MIGRAINES Discontinued Medications: Hctz/Spironolactone (Spironolactone/Hydrochlor 25-25 mg) 1 Ea Tab 1 TAB PO BID Discharge Exam Review of Systems: Constitutional: No fever, No chills Eyes: No worsening of vision, No eye pain, No redness, No discharge, No diplopia ENT: No hearing loss, No unusual epistaxis, No nasal symptoms, No sore throat Respiratory: No cough, No sputum, No wheezing, No shortness of breath Cardiovascular: No chest pain, No orthopnea, No PND, No edema Abdomen: No pain, No nausea, No vomiting, No diarrhea Musculoskeletal: No joint pain, No muscle pain, No swelling, No calf pain Genitourinary - Female: No dysuria, No urinary frequency, No urinary urgency , No urinary incontinence Neurologic: No memory loss, No paralysis, No weakness, No numbness/tingling Psychiatric: No depression symptoms, No anhedonism, No anxiety, No insomnia Endocrine: No fatigue, No excessive thirst Integumentary: No rash, No itch Physical Exam: General Appearance: WD/WN, + mild distress Eyes: normal inspection, PERRL, EOMI, sclerae normal ENT: normal ENT inspection, hearing grossly normal, TMs normal, pharynx normal Neck: supple, no adenopathy, thyroid normal, no JVD Respiratory/Chest: chest non-tender, lungs clear, normal breath sounds, no respiratory distress Cardiovascular: regular rate, rhythm, no edema, no gallop, no JVD Abdomen / GI: normal bowel sounds, non tender, soft, no organomegaly Neurologic/Psychiatric: no motor/sensory deficits, alert, normal mood/affect , oriented x 3 Hospital Course Hypertensive urgency/fatigue/lightheadedness/neck pain/brain fogginess-- Pt was admitted to tele CT head determind mild chronic small vessel disease. Held home BP meds Started on metoprolol IV in addition to triamterene/HCTZ as recommended by nephrology Will f/u with Dr Quinones on 12/03 Hypothyroidism--continue levothyroxine sodium at 100 g by mouth every morning. Migraine headache--continue sumatriptan 50 mg by mouth daily when necessary. GERD--place on famotidine 20 mg by mouth twice a day. Anxiety--continue alprazolam 0.5 mg by mouth at bedtime when necessary, and place on lorazepam 1 mg IV 30 minutes prior to MRI. Total Time Spent: Greater than 30 minutes This includes examination of the patient, discharge planning, medication reconciliation, and communication with other providers. Discharge Instructions Please refer to the electronic Patient Visit Report (Discharge Instructions) for additional information. Additional Copies To David Quinones M.D.
[2016-11-29] MEDS ORDERED: LISINOPRIL 20 MG TAB PO STA (16:49)
[2016-11-30] VITALS (7 sets, daily range): BP systolic 142–180; BP diastolic 81–102; PULSE 53–65; TEMP 36.5–36.8; O2SAT 96–97
[2016-11-30] MEDS: LEVOTHYROXINE 100 MCG TAB PO SCH (06:17)
[2016-11-30] MEDS: CALCIUM 600MG + VIT D 400 IU TAB PO SCH (08:18)
[2016-11-30] MEDS: FAMOTIDINE 20 MG TAB PO SCH (08:18)
[2016-11-30] MEDS: CHOLECALCIFEROL 1000 INTER.UNIT TAB PO SCH (08:19)
[2016-11-30] MEDS ORDERED: TRIAMTERENE/HCTZ 37.5/25MG CAP PO SCH (09:00)
[2016-11-30] MEDS ORDERED: LISINOPRIL 20 MG TAB PO SCH (09:00)
[2016-11-30] MEDS: SUMATRIPTAN SUCCINATE 50 MG TAB PO PRN (10:44)
[2016-11-30] MEDS ORDERED: LSN20 PO (12:28)
[2016-11-30] MEDS ORDERED: NURSING VERBAL MED ORDER ONE (13:00)
[2016-11-30] MEDS ORDERED: ALPRAZOLAM 0.25 MG TAB PO ONE (13:15)
== END 2016-11-30 14:46 | disposition home or self-care (01) | DRG 305 ==
LOC: C.EDB 20:58 → C.MED 11-29 01:59 → ENRESERV 11-29 02:11
PROVIDERS: ADMIT Hospitalist; ATTEND Hospitalist
DX: I16.0 Hypertensive urgency (principal); I10 Essential (primary) hypertension; E03.9 Hypothyroidism, unspecified; K21.9 Gastro-esophageal reflux disease without esophagitis; F41.9 Anxiety disorder, unspecified; Z79.899 Other long term (current) drug therapy; G43.909 Migraine, unspecified, not intractable, without status migrainosus